=== PATIENT | female | born 1955 | race Caucasian/White ===

== ENCOUNTER 2024-02-05 09:27 | Outpatient (CLI) | payer MEDICARE, BC, SELFPAY ==
--- NOTE | 2024-02-05 09:30 | MR_ITS ---
[address] [address] Phone:?[phone] Fax:?[phone] Referring Physician Information: Devin Page M.D. [id number] [facility] [address] Phone:?[phone] Fax:?[phone] Patient:?Karyn Carvalho D.O.B:?1955 Sex:?Female Phone:?[phone] [facility] MRN:?[id number] Exam Date:?02/05/2024 EXAM: MRI of the LEFT KNEE, without contrast CLINICAL: Female, 68 years old, with medial left knee pain. No reported specific known injury/trauma. INDICATION: Evaluate for medial meniscus tear versus other knee internal derangement etiology. PRIOR SURGERY: None reported. PLAIN FILMS: None available. COMPARISONS: 01/28/2024 radiographic series of the left knee. TECHNICAL: Using a 1.5 Neida MR scanner and a localizing surface coil: 3.0 mm?sagittals: PD, PDFS 3.0 mm?coronals: PD, STIR 3.0 mm?axials: PD, T2FS SEDATION: None. CONTRAST: None. IMPRESSION: 1. Complex tear of the medial meniscus including apparent radial tear/disruption near its posterior root tibial attachment, with moderate towards marked peripheral meniscal extrusion as may be expected to be associated with decrease towards loss of normal medial meniscal load-sharing function. 2. Moderate medial compartment chondromalacia/osteoarthritis with minimal subjacent reactive marrow edema at this time. 3. Marked chronic patellofemoral chondromalacia/osteoarthritis although with minimal subjacent marrow edema at this time. 4. Minimal apical irregularity of apical free edge of middle third of the lateral meniscus without larger tear. 5. Localized chondromalacia of the posterior lateral tibial plateau without subjacent marrow edema. 6. Large knee effusion. 7. No cruciate or collateral ligament injuries. FINDINGS: Knee joint: Effusion: Large knee effusion. Popliteal cyst: None. Loose bodies: None. Subcutaneous and extra-articular soft tissues: Unremarkable. Ligaments: ACL: Intact and normal. PCL: Intact and normal. MCL: Intact and normal. FCL: Intact and normal. Posterolateral corner: Intact popliteus, biceps femoris, iliotibial band, popliteofibular ligament and lateral gastrocnemius. Posteromedial corner: Intact pes anserinus and posterior oblique ligament. Extensor mechanism: Patellar tendon: Intact and normal. Quadriceps tendon: Intact and normal. Retinacula: Intact and normal. Fat pads: Unremarkable. Medial compartment: Medial meniscus: Mildly complex tear of the posterior one-half of the medial meniscus predominantly consists of oblique horizontal tear of inferior surface and yet also some additional irregularity including expected full-thickness oblique radial tear appearing to disrupt the meniscus near its posterior root tibial attachment (sagittal images 9-17; coronal images 23-20). Moderate towards marked 4 mm of peripheral meniscal extrusion documents associated decrease, perhaps towards loss, of normal medial meniscal load- sharing function. Medial femoral condyle: Broad-based grade II-III and more focal areas of grade IV chondromalacia/thinning and some irregularity of most of the weight-bearing medial femoral condyle is accompanied by mild to moderate marginal osteophyte formation, with minimal amount subjacent marrow edema at this time. Medial tibial plateau: Grade III-IV chondromalacia/thinning of the medial toward central aspect of the medial tibial plateau is accompanied by mild marginal osteophyte formation, with minimal subjacent marrow edema. Lateral compartment: Lateral meniscus: Perhaps very minimal focus of slight irregularity of apical free edge of middle third of the lateral meniscus but without larger lateral meniscus tear. Lateral femoral condyle: No demonstrable chondromalacia. Lateral tibial plateau: Grade II-III chondromalacia/thinning of the posterior and perhaps more central, lateral tibial plateau is not associated with significant subjacent marrow edema. Patellofemoral joint: Patella: Broad-based grade II-III and more localized grade IV chondromalacia/thinning of most of the patella is accompanied by slight to mild marginal osteophyte formation and minimal subjacent marrow edema (axial images 7-14). Trochlea: Broad-based grade II-III and more localized grade IV chondromalacia/thinning of most of femoral trochlea of the patellofemoral joint, with mild marginal osteophyte formation with minimal subjacent marrow edema. Proximal tibiofibular joint: Unremarkable. Bones: No other marrow edema or fractures. Neurovascular: Popliteal artery/vein: Normal. Anterior tibial artery: No aberrant variant. Tibial nerve: Normal. Popliteal nerve: Normal. Common peroneal nerve: Normal. F Electronically signed on 02/06/2024 11:56:00 AM by Aneudy Andrews M.D.
== END 2024-02-05 09:28 | disposition home or self-care (01) ==
LOC: MRI 09:29
PROVIDERS: PCP Family Medicine; Visit Provider Orthopaedic Surgery
DX: M25.562 Pain in left knee (principal); S83.242A Other tear of medial meniscus, current injury, left knee, initial encounter; S83.222A Peripheral tear of medial meniscus, current injury, left knee, initial encounter; M22.42 Chondromalacia patellae, left knee; M17.12 Unilateral primary osteoarthritis, left knee; M25.462 Effusion, left knee
CPT/HCPCS: 73721